=== PATIENT | female | born 1940 | race Caucasian/White ===

== ENCOUNTER 2017-03-15 15:28 | Observation (INO) | payer MEDICARE ==
[~2017-03-15] VITALS: Ht 167.6 cm; Wt 76.0 kg
[2017-03-15 15:45] VITALS: BP 224/95; PULSE 66; RESP 18; TEMP 97.6; O2SAT 97
--- NOTE | 2017-03-15 15:55 | PD ---
HPI Chief Complaint: Neuro Symptoms/ Deficits Time Seen by Provider: 15:35 Travel History International Travel<30 days: No Contact w/Intl Traveler<30days: No Traveled to known affect area: No History of Present Illness HPI 77-year-old female presents to the emergency department via EMS for evaluation of confusion that started this morning. According to the patient's , she was last seen normal last night before going to bed.. The patient denies any headaches. No visual changes. No fevers or chills. No chest pain. No neck pain. No back pain. No shortness of breath. No abdominal pain. No nausea, vomiting, diarrhea, constipation. She states she feels well and has no complaints. On questioning, she does not know what year it is sore who the president is. She also does not know that we are in the month of March. She will answer questions helmet something and then 5 minutes later not remember that she told me that. 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 She states she had it one time in the past with similar symptoms. She does not know her medical history what medications she is on. Moderate severity. PFSH Past Medical History ?: Not Social History Alcohol Use: No Tobacco Use: No Substance Use: No Allergies-Medications (Allergen,Severity, Reaction): Coded Allergies: No Known Allergies (Unverified , 03/15/17) Reported Meds & Prescriptions Reported Meds & Active Scripts Active Active Prescriptions or Reported Medications Unobtainable Review of Systems Except as stated in HPI: all other systems reviewed are Neg Physical Exam Narrative GENERAL: Well-nourished, well-developed female patient, afebrile. SKIN: Focused skin assessment warm/dry. HEAD: Normocephalic. Atraumatic. ENT: Mucosa pink and moist. No erythema or exudates. No uvular edema. No uvular , palatal, or tonsillar deviation. Airway patent. Nasal turbinates appear normal without nasal blood, purulent drainage or septal hematoma. Bilateral tympanic membranes are clear without erythema or perforation. EYES: No scleral icterus. No injection or drainage. PERRLA. EOM intact. NECK: Supple, trachea midline. No JVD or lymphadenopathy. CARDIOVASCULAR: Regular rate and rhythm without murmurs, gallops, or rubs. Bilateral radial and pedal pulses are 2+. RESPIRATORY: Breath sounds equal bilaterally. No accessory muscle use. Lungs sounds are clear to auscultation. GASTROINTESTINAL: Abdomen soft, non-tender, nondistended. MUSCULOSKELETAL: No cyanosis, or edema. BACK: Nontender without obvious deformity. No CVA tenderness. No midline spinal tenderness. NEUROLOGICAL: Awake and alert. Cranial nerves II through XII intact. Motor and sensory grossly within normal limits. Five out of 5 muscle strength in all muscle groups. Normal speech. Finger to nose is normal bilaterally. Heel-to- ewing is normal bilaterally. Data Data Last Documented VS Vital Signs Date Time Temp Pulse Resp B/P (MAP) Pulse Ox O2 Delivery O2 Flow Rate FiO2 03/15/17 16:38 78 18 168/74 (105) 98 Room Air 03/15/17 15:45 97.6 Orders Orders Electrocardiogram (03/15/17 15:46) Prothrombin Time / Inr (Pt) (03/15/17 15:46) Act Partial Throm Time (Ptt) (03/15/17 15:46) Complete Blood Count With Diff (03/15/17 15:46) Comprehensive Metabolic Panel (03/15/17 15:46) Creatine Kinase (Cpk) (03/15/17 15:46) Drug Screen, Random Urine (03/15/17 15:46) Troponin I (03/15/17 15:46) Urinalysis - C+S If Indicated (03/15/17 15:46) Ct Brain W/O Iv Contrast(Rout) (03/15/17 15:46) Chest, Single Ap (03/15/17 15:46) Ecg Monitoring (03/15/17 15:46) Iv Access Insert/Monitor (03/15/17 15:46) Oximetry (03/15/17 15:46) Hydralazine Inj (Apresoline Inj) (03/15/17 16:15) Hydralazine Inj (Apresoline Inj) (03/15/17 17:00) Hydralazine Inj (Apresoline Inj) (03/15/17 18:15) Labs Laboratory Tests Test 03/15/17 16:00 03/15/17 16:10 White Blood Count 8.3 TH/MM3 Red Blood Count 4.64 MIL/MM3 Hemoglobin 15.1 GM/DL Hematocrit 43.6 % Mean Corpuscular Volume 94.1 FL Mean Corpuscular Hemoglobin 32.5 PG Mean Corpuscular Hemoglobin Concent 34.6 % Red Cell Distribution Width 13.0 % Platelet Count 229 TH/MM3 Mean Platelet Volume 8.1 FL Neutrophils (%) (Auto) 73.6 % Lymphocytes (%) (Auto) 19.1 % Monocytes (%) (Auto) 5.6 % Eosinophils (%) (Auto) 1.3 % Basophils (%) (Auto) 0.4 % Neutrophils # (Auto) 6.1 TH/MM3 Lymphocytes # (Auto) 1.6 TH/MM3 Monocytes # (Auto) 0.5 TH/MM3 Eosinophils # (Auto) 0.1 TH/MM3 Basophils # (Auto) 0.0 TH/MM3 CBC Comment DIFF FINAL Differential Comment Prothrombin Time 9.8 SEC Prothromb Time International Ratio 1.0 RATIO Activated Partial Thromboplast Time 24.5 SEC Blood Urea Nitrogen 11 MG/DL Creatinine 0.68 MG/DL Random Glucose 113 MG/DL Total Protein 7.4 GM/DL Albumin 3.9 GM/DL Calcium Level 8.9 MG/DL Alkaline Phosphatase 73 U/L Aspartate Amino Transf (AST/SGOT) 23 U/L Alanine Aminotransferase (ALT/SGPT) 29 U/L Total Bilirubin 1.0 MG/DL Sodium Level 140 MEQ/L Potassium Level 3.8 MEQ/L Chloride Level 106 MEQ/L Carbon Dioxide Level 26.0 MEQ/L Anion Gap 8 MEQ/L Estimat Glomerular Filtration Rate 83 ML/MIN Total Creatine Kinase 76 U/L Troponin I LESS THAN 0.02 NG/ML Urine Color LIGHT-YELLOW Urine Turbidity CLEAR Urine pH 8.0 Urine Specific [place] 1.007 Urine Protein 30 mg/dL Urine Glucose (UA) NEG mg/dL Urine Ketones NEG mg/dL Urine Occult Blood NEG Urine Nitrite NEG Urine Bilirubin NEG Urine Urobilinogen LESS THAN 2.0 MG/DL Urine Leukocyte Esterase NEG Urine RBC LESS THAN 1 /hpf Microscopic Urinalysis Comment CATH-CULT NOT IND Urine Opiates Screen NEG Urine Barbiturates Screen NEG Urine Amphetamines Screen NEG Urine Benzodiazepines Screen NEG Urine Cocaine Screen NEG Urine Cannabinoids Screen NEG MDM Medical Decision Making Medical Screen Exam Complete: Yes Emergency Medical Condition: Yes Medical Record Reviewed: Yes Interpretation(s) chest x-ray - CONCLUSION: No acute cardiopulmonary abnormality is identified. CT brain - CONCLUSION: No acute intracranial abnormality is identified. Differential Diagnosis Transient global amnesia versus CVA versus TIA versus electrolyte abnormality versus dehydration versus intracranial mass versus intracranial hemorrhage Narrative Course 77-year-old female presents to the emergency department via EMS for confusion that started this morning sometime between 8 and 8:30 this morning. On exam, she does answer most questions appropriately. She is confused on the date, month, president. She will tell me something and then does not remember telling me it right after. EKG, CBC, CMP, CK, troponin, PTT, PT/INR, UA, urine drug screen are ordered and pending. Chest x-ray and CT of the brain are ordered and pending. EKG shows sinus rhythm, heart rate 62, no acute ST changes. CBC is unremarkable. CMP shows no acute abnormality. CK is 76. Troponin is less than 0.02. Coags shows no acute abnormalities. UA is negative. UDS is negative. Chest x-ray shows no acute cardiopulmonary abnormality is identified. . CT of the brain shows no acute intracranial abnormality. Dr. Ha accepted admission. Diagnosis Primary Impression: Acute confusion Admitting Information Admitting Physician Requests: Observation Scripts Unable to Obtain Active Prescriptions or Reported Meds Esthela Pena Mar 15, 2017 15:54
[2017-03-15 16:03] VITALS: RESP 18; O2SAT 98
[2017-03-15] MEDS ORDERED: hydrALAZINE HCL 20 MG/ML VIAL IV PUSH ONE ×3 (16:15→18:15)
--- NOTE | 2017-03-15 16:19 | RADRPT ---
EXAM DATE/TIME: 03/15/2017 15:56 [facility] COMPARISON: No previous studies available for comparison. INDICATIONS : Loss of memory MEDICAL HISTORY : None. SURGICAL HISTORY : None. ENCOUNTER: Initial ACUITY: 1 day PAIN SCORE: 0/10 LOCATION: Bilateral chest FINDINGS: Portable AP view of the chest demonstrates a normal-sized cardiac silhouette with calcification of th e aorta. No effusion, consolidation, or pneumothorax is visualized. The bones and soft tissues demons trate no acute abnormality. Clips overlie the right axilla. CONCLUSION: No acute cardiopulmonary abnormality is identified. Burt Chatterjee MD on March 15, 2017 at 16:14 Board Certified Radiologist. This report was verified electronically.
[2017-03-15 16:30] LABS: AUTOMATED NEUTROPHIL # 6.1 TH/MM3 (1.8-7.7); BASOPHIL % 0.4 % (0.0-2.0); EOSINOPHIL # 0.1 TH/MM3 (0-0.4); EOSINOPHIL % 1.3 % (0.0-4.0); HEMATOCRIT 43.6 % (35.0-46.0); HEMOGLOBIN 15.1 GM/DL (11.6-15.3); LYMPH % 19.1 % (9.0-44.0); LYMPHOCYTE # 1.6 TH/MM3 (1.0-4.8); MEAN CELL VOLUME 94.1 FL (80.0-100.0); MEAN CORPUSCULAR HEMOGLOBIN 32.5 PG (27.0-34.0); MEAN CORPUSCULAR HGB CONC 34.6 % (32.0-36.0); MEAN PLATELET VOLUME 8.1 FL (7.0-11.0); MONO % 5.6 % (0.0-8.0); MONOCYTE # 0.5 TH/MM3 (0-0.9); NEUT % 73.6 % (16.0-70.0); PLATELET COUNT 229 TH/MM3 (150-450); RED BLOOD COUNT 4.64 MIL/MM3 (4.00-5.30); WHITE BLOOD COUNT 8.3 TH/MM3 (4.0-11.0)
[2017-03-15 16:32] LABS: BILIRUBIN, URINE NEG (NEG); BLOOD, URINE NEG (NEG); GLUCOSE,URINE NEG (NEG); KETONE, URINE NEG (NEG); NITRITE,URINE NEG (NEG); URINE COLOR LIGHT-YELLOW (YELLW/STRAW); URINE LEUKOCYTE ESTERASE NEG (NEG)
[2017-03-15 16:38] VITALS: BP 168/74; PULSE 78; RESP 18; O2SAT 98
[2017-03-15 16:41] LABS: PROTHROMBIN TIME - PATIENT 9.8 SEC (9.8-11.6)
[2017-03-15 16:54] LABS: ALBUMIN 3.9 GM/DL (3.4-5.0); ALKALINE PHOSPHATASE 73 U/L (45-117); ALT (GPT) 29 U/L (10-53); AST (GOT) 23 U/L (15-37); BLOOD UREA NITROGEN 11 MG/DL (7-18); CALCIUM 8.9 MG/DL (8.5-10.1); CHLORIDE 106 MEQ/L (98-107); CREATININE 0.68 MG/DL (0.50-1.00); GLOMERULAR FILTRATION RATE 83 ML/MIN (>89); GLUCOSE,RANDOM 113 MG/DL (74-106); SODIUM (NA) 140 MEQ/L (136-145); TOTAL PROTEIN 7.4 GM/DL (6.4-8.2); TROPONIN I LESS THAN 0.02 NG/ML (0.02-0.05)
--- NOTE | 2017-03-15 17:45 | PD ---
Physical Exam Narrative I, Dr. Peralta, have reviewed the advance practice practitioner's documentation and am in agreement, met with the patient face to face, made the diagnosis, and the medical decision making was done by me. *My assessment and Findings: Transient global amnesia vs. dementia vs. electrolyte abnormality vs. ICH vs. CVA vs. conversion disorder 77yo F with history of transient global amnesia here because she had an acute change in mental status today. As per , he came home from golf and she was on the phone with her daughter. Pt does not remember being on the phone. She also didnt know where she was and was confused. Denies any headache, visual changes, chest pain, sob, n/v, abdominal pain, focal weakness or numbness , changes in speech. CT brain negative. Will admit for TIA work up. Data Data Last Documented VS Vital Signs Date Time Temp Pulse Resp B/P (MAP) Pulse Ox O2 Delivery O2 Flow Rate FiO2 03/15/17 16:38 78 18 168/74 (105) 98 Room Air 03/15/17 15:45 97.6 Orders Orders Electrocardiogram (03/15/17 15:46) Prothrombin Time / Inr (Pt) (03/15/17 15:46) Act Partial Throm Time (Ptt) (03/15/17 15:46) Complete Blood Count With Diff (03/15/17 15:46) Comprehensive Metabolic Panel (03/15/17 15:46) Creatine Kinase (Cpk) (03/15/17 15:46) Drug Screen, Random Urine (03/15/17 15:46) Troponin I (03/15/17 15:46) Urinalysis - C+S If Indicated (03/15/17 15:46) Ct Brain W/O Iv Contrast(Rout) (03/15/17 15:46) Chest, Single Ap (03/15/17 15:46) Ecg Monitoring (03/15/17 15:46) Iv Access Insert/Monitor (03/15/17 15:46) Oximetry (03/15/17 15:46) Hydralazine Inj (Apresoline Inj) (03/15/17 16:15) Hydralazine Inj (Apresoline Inj) (03/15/17 17:00) Hydralazine Inj (Apresoline Inj) (03/15/17 18:15) Admit Order (Ed Use Only) (03/15/17 18:10) Labs Laboratory Tests Test 03/15/17 16:00 03/15/17 16:10 White Blood Count 8.3 TH/MM3 Red Blood Count 4.64 MIL/MM3 Hemoglobin 15.1 GM/DL Hematocrit 43.6 % Mean Corpuscular Volume 94.1 FL Mean Corpuscular Hemoglobin 32.5 PG Mean Corpuscular Hemoglobin Concent 34.6 % Red Cell Distribution Width 13.0 % Platelet Count 229 TH/MM3 Mean Platelet Volume 8.1 FL Neutrophils (%) (Auto) 73.6 % Lymphocytes (%) (Auto) 19.1 % Monocytes (%) (Auto) 5.6 % Eosinophils (%) (Auto) 1.3 % Basophils (%) (Auto) 0.4 % Neutrophils # (Auto) 6.1 TH/MM3 Lymphocytes # (Auto) 1.6 TH/MM3 Monocytes # (Auto) 0.5 TH/MM3 Eosinophils # (Auto) 0.1 TH/MM3 Basophils # (Auto) 0.0 TH/MM3 CBC Comment DIFF FINAL Differential Comment Prothrombin Time 9.8 SEC Prothromb Time International Ratio 1.0 RATIO Activated Partial Thromboplast Time 24.5 SEC Blood Urea Nitrogen 11 MG/DL Creatinine 0.68 MG/DL Random Glucose 113 MG/DL Total Protein 7.4 GM/DL Albumin 3.9 GM/DL Calcium Level 8.9 MG/DL Alkaline Phosphatase 73 U/L Aspartate Amino Transf (AST/SGOT) 23 U/L Alanine Aminotransferase (ALT/SGPT) 29 U/L Total Bilirubin 1.0 MG/DL Sodium Level 140 MEQ/L Potassium Level 3.8 MEQ/L Chloride Level 106 MEQ/L Carbon Dioxide Level 26.0 MEQ/L Anion Gap 8 MEQ/L Estimat Glomerular Filtration Rate 83 ML/MIN Hemoglobin A1c 6.1 % Total Creatine Kinase 76 U/L Troponin I LESS THAN 0.02 NG/ML Urine Color LIGHT-YELLOW Urine Turbidity CLEAR Urine pH 8.0 Urine Specific [place] 1.007 Urine Protein 30 mg/dL Urine Glucose (UA) NEG mg/dL Urine Ketones NEG mg/dL Urine Occult Blood NEG Urine Nitrite NEG Urine Bilirubin NEG Urine Urobilinogen LESS THAN 2.0 MG/DL Urine Leukocyte Esterase NEG Urine RBC LESS THAN 1 /hpf Microscopic Urinalysis Comment CATH-CULT NOT IND Urine Opiates Screen NEG Urine Barbiturates Screen NEG Urine Amphetamines Screen NEG Urine Benzodiazepines Screen NEG Urine Cocaine Screen NEG Urine Cannabinoids Screen NEG MDM Supervised Visit with RONI: Yes Interpretation(s) EKG: NSR 62bpm. Normal axis. Q wave III. No ST segment elevation or depression. Diagnosis Primary Impression: Acute confusion Admitting Information Admitting Physician Requests: Observation Edda Peralta DO Mar 15, 2017 17:45
--- NOTE | 2017-03-15 17:57 | RADRPT ---
EXAM DATE/TIME: 03/15/2017 17:41 [facility] COMPARISON: No previous studies available for comparison. INDICATIONS : Altered mental status. RADIATION DOSE: 48.02 CTDIvol (mGy) MEDICAL HISTORY : None SURGICAL HISTORY : None. ENCOUNTER: Initial ACUITY: 1 day PAIN SCALE: 0/10 LOCATION: Bilateral head TECHNIQUE: Multiple contiguous axial images were obtained of the head. Using automated exposure control and adj ustment of the mA and/or kV according to patient size, radiation dose was kept as low as reasonably a chievable to obtain optimal diagnostic quality images. DICOM format image data is available electro nically for review and comparison. FINDINGS: CEREBRUM: There is mild cerebral atrophy. Ventricles are normal. No evidence of midline shift, mass lesion, he morrhage or acute infarction. No extra-axial fluid collections are seen. POSTERIOR FOSSA: The cerebellum and brainstem are intact. The 4th ventricle is midline. The cerebellopontine angle i s unremarkable. EXTRACRANIAL: Visualized sinuses are clear. SKULL: The calvaria is intact. No evidence of skull fracture. CONCLUSION: No acute intracranial abnormality is identified. Burt Chatterjee MD on March 15, 2017 at 17:53 Board Certified Radiologist. This report was verified electronically.
[2017-03-15] MEDS ORDERED: ACETAMINOPHEN 325 MG TAB PO PRN (18:15)
[2017-03-15] MEDS ORDERED: NALOXONE HCL 0.4 MG/ML AMP IV PUSH PRN (18:15)
[2017-03-15] MEDS ORDERED: BISACODYL 10 MG SUPP RECTAL PRN (18:15)
[2017-03-15] MEDS ORDERED: ONDANSETRON HCL 4 MG/2 ML VIAL IVP PRN (18:15)
[2017-03-15] MEDS ORDERED: SENNOSIDES 8.6 MG TAB PO PRN (18:15)
[2017-03-15] MEDS ORDERED: MAGNESIUM HYDROXIDE SUSP 30 ML CUP PO PRN (18:15)
[2017-03-15] MEDS ORDERED: SODIUM CHLORIDE 0.9% FLUSH 10 ML FLUSH IV FLUSH PRN (18:15)
[2017-03-15] MEDS ORDERED: LACTULOSE SYRUP 20 GM/30 ML CUP PO PRN (18:15)
[2017-03-15 19:18] VITALS: BP 184/82; PULSE 75; RESP 18; O2SAT 98
--- NOTE | 2017-03-15 19:19 | RADRPT ---
EXAM DATE/TIME: 03/15/2017 18:49 [facility] COMPARISON: CT BRAIN W/O CONTRAST, March 15, 2017, 17:41. INDICATIONS : CVA. Confusion for one day. MEDICAL HISTORY : Carcinoma, breast. SURGICAL HISTORY : Hysterectomy. ENCOUNTER: Initial ACUITY: 1 day PAIN SCORE: 8/10 LOCATION: Bilateral cranial TECHNIQUE: Multiplanar, multisequence MRI of the brain was performed without contrast. FINDINGS: CEREBRUM: The ventricles are normal for age. No evidence of midline shift, mass lesion, hemorrhage or acute in farction. Minimal periventricular and subcortical white matter small vessel ischemic changes are not ed bilaterally. No extraaxial fluid collections are seen. The pituitary gland and suprasellar cister n are normal in configuration. WHITE MATTER: No significant signal abnormalities are seen in the white matter. POSTERIOR FOSSA: The cerebellum and brainstem are intact. The 4th ventricle is midline. The cerebellopontine angle is unremarkable. The cerebellar tonsils are normal in position. DIFFUSION IMAGING: No focal areas of restricted diffusion are seen. No evidence of acute infarction. EXTRACRANIAL: The visualized portions of the orbits and paranasal sinuses are unremarkable. CONCLUSION: 1. Minimal periventricular and subcortical white matter small vessel ischemic changes bilaterally. 2. No acute infarct, acute hemorrhage, mass effect or extra-axial fluid collections. Walter Daniels MD on March 15, 2017 at 19:14 Board Certified Radiologist. This report was verified electronically.
[2017-03-15 19:36] VITALS: BP 175/77; PULSE 71; RESP 18; O2SAT 98
[2017-03-15] MEDS ORDERED: PADIMATE (CHAPSTICK) 4.5 GM TUBE TOPICAL PRN (20:15)
[2017-03-15 20:38] VITALS: BP 169/71; PULSE 72; RESP 17; TEMP 97.6; O2SAT 96
--- NOTE | 2017-03-15 21:08 | HHI.HP ---
[facility] Primary Care Physician Dr. Morgan Ann . Admission Diagnosis acute confusion Diagnoses: (1) Acute confusion Chief Complaint: Period of confusion, impaired memory Travel History International Travel<30 Days: No Contact w/Intl Traveler <30 Da: No Traveled to Known Affected Are: No History of Present Illness Written by Tess Lemus, acting as scribe for Dr. Hopson on 03/15/17 at 21:08. The patient was seen in the CDU. She reports the following: Similar episodes in 1998 and 2005 - she was told it was "transient global amnesia" The patient reports that she was on the phone with her daughter in [place] and she doesn't know what happened. Neighbors went to check on her at her home because the daughter was concerned and called them. She didn't remember talking with her daughter. Initially her was not at home but the patient's friend called him while he was golfing and told him to come home and he came home. The friend was concerned that something was wrong. She was on the phone with her daughter for 45 minutes after the patient' s came home. His daughter told him that he needed to call 911 because the patient was not acting right. She kept repeating herself and didn't remember what she was saying. She reports losing a "few hours" - she has a vague recollection of riding on the ambulance. In 1998, episode occurred while she was in the shower. She came out of the shower and acted strangely. She was attempting to cover herself with a tiny hand towel which was very unusual behavior for her. She was diagnosed with transient global amnesia. Ate Ritz crackers with peanut butter. Last was speaking normally at 10:15 a.m. In 2005, possibly: she was out driving and became confused about where she was going. She doesn't remember the exact details. She says her children will remember better. They are flying in from [facility]. Denies any seizures or CVA. Denies any changes to medications. Last one to two weeks: Denies fevers, headache, nausea, vomiting, black or red stool, hematuria, dysuria, frequency, chest pain, shortness of breath, or abdominal pain. Does not follow with a neurologist Review of Systems Except as stated in HPI: all other systems reviewed are Neg Past Family Social History Past Medical History Prediabetes High blood pressure at times Breast cancer 2007 - right breast s/p lumpectomy and 30 radiation treatments - no chemotherapy Glaucoma Thyroid nodule Denies CAD, CHF, irregular heart rhythms, COPD, asthma, liver problems, kidney problems, DVT, PE, CVA, seizures. . Past Surgical History Right breast lumpectomy 2007 x 2 Partial Hysterectomy Full Hysterectomy Cataracts . Reported Medications Does not recall all meds or doses [facility] [address] Allergies: Coded Allergies: No Known Allergies (Unverified , 03/15/17) Active Ordered Medications Current Medications Hydralazine HCl (Apresoline Inj) 10 mg ONCE ONCE IV PUSH Last administered on 03/15/17 16:21; Start 03/15/17 at 16:15; Stop 03/15/17 at 16:16; Status DC Hydralazine HCl (Apresoline Inj) 10 mg ONCE ONCE IV PUSH ; Start 03/15/17 at 17 :00; Stop 03/15/17 at 17:00; Status DC Hydralazine HCl (Apresoline Inj) 10 mg ONCE ONCE IV PUSH Last administered on 03/15/17 18:23; Start 03/15/17 at 18:15; Stop 03/15/17 at 18:16; Status DC Sodium Chloride (NS Flush) 2 ml UNSCH PRN IV FLUSH FLUSH AFTER USING IV ACCESS ; Start 03/15/17 at 18:15 Sodium Chloride (NS Flush) 2 ml BID IV FLUSH ; Start 03/15/17 at 21:00 Acetaminophen (Tylenol) 650 mg Q4H PRN PO TEMP > 100.4 Last administered on 19:38; Start 03/15/17 at 18:15 Ondansetron HCl (Zofran Inj) 4 mg Q6H PRN IVP NAUSEA OR VOMITING; Start at 18:15 Heparin Sodium (Porcine) (Heparin Inj) 5,000 units Q8H SQ ; Start 03/15/17 at 22 :00 Naloxone HCl (Narcan Inj) 0.4 mg UNSCH PRN IV PUSH SEE LABEL COMMENTS; Start 03/15/17 at 18:15 Senna/Docusate Sodium (Faith-Colace) 1 tab BID PO ; Start 03/15/17 at 21:00 Magnesium Hydroxide (Milk Of Magnesia Liq) 30 ml Q12H PRN PO Mild constipation ; Start 03/15/17 at 18:15 Sennosides (Senokot) 17.2 mg Q12H PRN PO Moderate constipation; Start 03/15/17 at 18:15 Bisacodyl (Dulcolax Supp) 10 mg DAILY PRN RECTAL SEVERE CONSITIPATION; Start 03/15/17 at 18:15 Lactulose (Lactulose Liq) 30 ml DAILY PRN PO SEVERE CONSITIPATION; Start at 18:15 Padimate O (Chapstick) 1 applic UNSCH PRN TOPICAL dry lips; Start 03/15/17 at 20:15 . Family History Breast and Ovarian CA . Social History Tobacco: denies Alcohol: a glass of wine on occasion, not daily Still driving . Physical Exam Vital Signs Vital Signs Date Time Temp Pulse Resp B/P (MAP) Pulse Ox O2 Delivery O2 Flow Rate FiO2 03/15/17 20:38 97.6 72 17 169/71 (103) 96 03/15/17 19:36 71 18 175/77 (109) 98 Room Air 03/15/17 19:18 75 18 184/82 (116) 98 Room Air 03/15/17 16:38 78 18 168/74 (105) 98 Room Air 03/15/17 16:03 18 98 Room Air 03/15/17 15:45 97.6 66 18 224/95 (138) 97 Room Air 03/15/17 15:45 90 18 97 Room Air Physical Exam GENERAL: This is a pleasant well-nourished, well-developed patient, in no apparent distress. SKIN: No rashes, ecchymoses or lesions. Cool and dry. HEAD: Atraumatic. Normocephalic. EYES: No scleral icterus. No injection or drainage. ENT: Nose without bleeding, purulent drainage. NECK: Trachea midline. No JVD or lymphadenopathy. CARDIOVASCULAR: Regular rate and rhythm without murmurs, gallops, or rubs. RESPIRATORY: Clear to auscultation. Breath sounds equal bilaterally. No wheezes , rales, or rhonchi. GASTROINTESTINAL: Abdomen soft, non-tender, nondistended. No guarding. MUSCULOSKELETAL: Extremities without clubbing, cyanosis, or edema. No calf tenderness. NEUROLOGICAL: Awake and alert. Motor and sensory grossly within normal limits. Normal speech. Patient has some memory impairment. . Laboratory Laboratory Tests Test 03/15/17 16:00 03/15/17 16:10 White Blood Count 8.3 Red Blood Count 4.64 Hemoglobin 15.1 Hematocrit 43.6 Mean Corpuscular Volume 94.1 Mean Corpuscular Hemoglobin 32.5 Mean Corpuscular Hemoglobin Concent 34.6 Red Cell Distribution Width 13.0 Platelet Count 229 Mean Platelet Volume 8.1 Neutrophils (%) (Auto) 73.6 Lymphocytes (%) (Auto) 19.1 Monocytes (%) (Auto) 5.6 Eosinophils (%) (Auto) 1.3 Basophils (%) (Auto) 0.4 Neutrophils # (Auto) 6.1 Lymphocytes # (Auto) 1.6 Monocytes # (Auto) 0.5 Eosinophils # (Auto) 0.1 Basophils # (Auto) 0.0 CBC Comment DIFF FINAL Differential Comment Prothrombin Time 9.8 Prothromb Time International Ratio 1.0 Activated Partial Thromboplast Time 24.5 Blood Urea Nitrogen 11 Creatinine 0.68 Random Glucose 113 Total Protein 7.4 Albumin 3.9 Calcium Level 8.9 Alkaline Phosphatase 73 Aspartate Amino Transf (AST/SGOT) 23 Alanine Aminotransferase (ALT/SGPT) 29 Total Bilirubin 1.0 Sodium Level 140 Potassium Level 3.8 Chloride Level 106 Carbon Dioxide Level 26.0 Anion Gap 8 Estimat Glomerular Filtration Rate 83 Total Creatine Kinase 76 Troponin I LESS THAN 0.02 Urine Color LIGHT-YELLOW Urine Turbidity CLEAR Urine pH 8.0 Urine Specific [place] 1.007 Urine Protein 30 Urine Glucose (UA) NEG Urine Ketones NEG Urine Occult Blood NEG Urine Nitrite NEG Urine Bilirubin NEG Urine Urobilinogen LESS THAN 2.0 Urine Leukocyte Esterase NEG Urine RBC LESS THAN 1 Microscopic Urinalysis Comment CATH-CULT NOT IND Urine Opiates Screen NEG Urine Barbiturates Screen NEG Urine Amphetamines Screen NEG Urine Benzodiazepines Screen NEG Urine Cocaine Screen NEG Urine Cannabinoids Screen NEG Result Diagram: 03/15/17 1600 03/15/17 1600 Imaging Last Impressions Head CT 03/15/17 1546 Signed Impressions: Service Date/Time: Wednesday, March 15, 2017 17:41 - CONCLUSION: No acute intracranial abnormality is identified. Burt Chatterjee MD Chest X-Ray 03/15/17 1546 Signed Impressions: Service Date/Time: Wednesday, March 15, 2017 15:56 - CONCLUSION: No acute cardiopulmonary abnormality is identified. Burt Chatterjee MD Brain MRI 03/15/17 0000 Signed Impressions: Service Date/Time: Wednesday, March 15, 2017 18:49 - CONCLUSION: 1. Minimal periventricular and subcortical white matter small vessel ischemic changes bilaterally. 2. No acute infarct, acute hemorrhage, mass effect or extra- axial fluid collections. Walter Daniels MD . Caprini VTE Risk Assessment Caprini VTE Risk Assessment: Mod/High Risk (score >= 2) Caprini Risk Assessment Model Point Value = 1 Point Value = 2 Point Value = 3 Point Value = 5 Age 41-60 Minor surgery BMI > 25 kg/m2 Swollen legs Varicose veins or History of unexplained or recurrent spontaneous Oral contraceptives or hormone replacement Sepsis (< 1 month) Serious lung disease, including pneumonia (< 1 month) Abnormal pulmonary function Acute myocardial infarction Congestive heart failure (< 1 month) History of inflammatory bowel disease Medical patient at bed rest Age 61-74 Arthroscopic surgery Major open surgery (> 45 min) Laparoscopic surgery (> 45 min) Malignancy Confined to bed (> 72 hours) Immobilizing plaster cast Central venous access Age >= 75 History of VTE Family history of VTE Factor V Leiden Prothrombin [id number] Lupus anticoagulant Anticardiolipin antibodies Elevated serum homocysteine Heparin-induced thrombocytopenia Other congenital or acquired thrombophilia Stroke (< 1 month) Elective arthroplasty Hip, pelvis, or leg fracture Acute spinal cord injury (< 1 month) Prophylaxis Regimen Total Risk Factor Score Risk Level Prophylaxis Regimen 0-1 Low Early ambulation 2 Moderate Order ONE of the following: *Sequential Compression Device (SCD) *Heparin 5000 units SQ BID 3-4 Higher Order ONE of the following medications: *Heparin 5000 units SQ TID *Enoxaparin/Lovenox 40 mg SQ daily (WT < 150 kg, CrCl > 30 mL/min) *Enoxaparin/Lovenox 30 mg SQ daily (WT < 150 kg, CrCl > 10-29 mL/min) *Enoxaparin/Lovenox 30 mg SQ BID (WT < 150 kg, CrCl > 30 mL/min) AND/OR *Sequential Compression Device (SCD) 5 or more Highest Order ONE of the following medications: *Heparin 5000 units SQ TID (Preferred with Epidurals) *Enoxaparin/Lovenox 40 mg SQ daily (WT < 150 kg, CrCl > 30 mL/min) *Enoxaparin/Lovenox 30 mg SQ daily (WT < 150 kg, CrCl > 10-29 mL/min) *Enoxaparin/Lovenox 30 mg SQ BID (WT < 150 kg, CrCl > 30 mL/min) AND *Sequential Compression Device (SCD) Assessment and Plan Problem List: (1) Encephalopathy ICD Code: G93.40 - Encephalopathy, unspecified Assessment and Plan Patient is a 77 y/o female with a history of breast cancer, transient global amnesia, and hyperlipidemia who presented to the ED with confusion and memory impairment: Encephalopathy - transient memory loss - likely secondary to TIA - Brain MRI: Minimal periventricular and subcortical white matter small ischemic vessel disease. No acute infarct, hemorrhage or fluid collections. - Head CT: no acute abnormality identified - consult neurology - appreciate assistance - Give ASA 324 mg chewable now and 325 mg EC daily - verbally ordered - Check lipid profile and HgA1C - Check carotid ultrasound to r/o carotid artery stenosis - monitor vital signs - heart healthy diet DVT prophylaxis - Lovenox 40 mg subq q24h Awaiting medication reconciliation to be completed for home medications to be resumed. . This note was transcribed by [email or web address] [Tess Lemus]. I, Dr. Win Hopson personally performed the history, physical exam, and medical decision making; and confirmed the accuracy of the information in the transcribed note. Authenticated by Dr. Win Hopson on 03/15/17 at 21:08. Discussed Condition With Patient, patient's , ER physician, and RN . Tess Lemus Mar 15, 2017 21:08 Win Hopson MD Apr 11, 2017 20:06
[2017-03-15] MEDS ORDERED: ASPIRIN 81 MG CHEW TAB CHEW ONE (21:30)
[2017-03-15] MEDS ORDERED: HEPARIN SODIUM - SQ 10,000 UNITS/ML VIAL SQ SCH (22:00)
[2017-03-15] MEDS ORDERED: PARO10TA3 PO (22:06)
[2017-03-15] MEDS ORDERED: SIMV20TA PO (22:06)
[2017-03-15] MEDS ORDERED: OMEP20TA93 PO (22:06)
[2017-03-15] MEDS ORDERED: TIMO0.5S30 EACH EYE (22:06)
[2017-03-15 22:27] LABS: HEMOGLOBIN A1C 6.1 % (4.3-6.0)
[2017-03-15] MEDS: DOCUSATE SODIUM 50 MG/SENNA 8.6 MG TAB PO SCH (22:41)
[2017-03-15] MEDS: ENOXAPARIN SODIUM 40 MG/0.4 ML SYRINGE SQ SCH (22:42)
[2017-03-15] MEDS: SODIUM CHLORIDE 0.9% FLUSH 10 ML FLUSH IV FLUSH SCH (22:42)
--- NOTE | 2017-03-15 23:16 | RADRPT ---
EXAM DATE/TIME: 03/15/2017 22:44 [place] COMPARISON: No previous studies available for comparison. INDICATIONS : Transient ischemic attack. Altered mental status. MEDICAL HISTORY : Breast cancer. IBS. Glaucoma. Transient global amnesia. SURGICAL HISTORY : None. ENCOUNTER: Initial ACUITY: 1 day PAIN SCORE: 0/10 LOCATION: Bilateral neck PEAK SYSTOLIC VELOCITIES (cm/sec): ICA/CCA RATIO: Right: 1.0 Left: 0.9 ICA: Right: 67 Left: 106 CCA: Right: 66 Left: 114 ECA: Right: 116 Left: 130 VERTEBRAL: Right: 75 antegrade Left: 62 antegrade Elevated flow velocities and ICA/CCA ratios have been found to correlate with increased degrees of vessel stenosis, calculated as percentage of diameter relative to a normal segment of distal ICA/CCA FINDINGS: RIGHT CAROTID: No significant stenosis is visualized. Mild calcified plaque is present in the bulbs and bifurcation. . The waveforms are within normal limits. LEFT CAROTID: No significant stenosis is visualized. Mild calcified plaque is present in the bulbs and bifurcation. The waveforms are within normal limits. VERTEBRAL ARTERIES: Antegrade flow is seen in both vertebral arteries. MISCELLANEOUS: None. CONCLUSION: Mild bilateral plaque and no evidence of a hemodynamically significant lesion. Aaron Echeverria MD on March 15, 2017 at 23:13 Board Certified Radiologist. This report was verified electronically.
[2017-03-15] MEDS: TIMOLOL MALEATE 0.5% OPHT SOLN 5 ML BTL EACH EYE SCH (23:53)
[2017-03-16] VITALS (10 sets, daily range): BP systolic 108–158; BP diastolic 54–71; PULSE 67–91; RESP 16–18; TEMP 97.8–98.1; O2SAT 95–97
--- NOTE | 2017-03-16 01:42 | HHI.PR ---
Addendum to Inpatient Note Addendum Reason: Additional Documentation Additional Information Patient was given a sandwich to eat and shortly after she ate it, she felt tired. She states that she turned off the TV and tried to sleep and started to feel chest pain. The patient's RN checked her bp and it was 72/38; bed was placed in a flat position and her BP improved to 110/60 with no other intervention and sbp was 115 by the time I came to the bedside. The patient was still feeling chest pain 2/10 with no radiation, no sob, palpitations, nausea/vomiting, or dizziness. I have placed orders for serial cardiac enzymes and EKG as well as an echocardiogram. Initial EKGs had suboptimal tracings that showed QT prolongation that resolved by the third EKG with better tracing. EKG with normal sinus rhythm, no ischemic changes. Discussed with Dr. Hopson. Will also check orthostatic blood pressure readings. Monitor closely. . Tess Lemus Mar 16, 2017 01:42
[2017-03-16 02:02] LABS: TROPONIN I 0.02 NG/ML (0.02-0.05)
[2017-03-16 07:20] LABS: ALBUMIN 3.6 GM/DL (3.4-5.0); ALT (GPT) 25 U/L (10-53); AST (GOT) 15 U/L (15-37); BICARBONATE 25.4 MEQ/L (21.0-32.0); BLOOD UREA NITROGEN 17 MG/DL (7-18); CALCIUM 8.8 MG/DL (8.5-10.1); CHLORIDE 103 MEQ/L (98-107); CHOLESTEROL 161 MG/DL (120-200); CREATININE 0.81 MG/DL (0.50-1.00); GLOMERULAR FILTRATION RATE 68 ML/MIN (>89); GLUCOSE,RANDOM 116 MG/DL (74-106); SODIUM (NA) 138 MEQ/L (136-145); TRIGLYCERIDES 103 MG/DL (42-150)
[2017-03-16 07:22] LABS: ALKALINE PHOSPHATASE 62 U/L (45-117); CHOLESTEROL/ HDL RATIO 2.53 RATIO; HDL CHOLESTEROL 63.6 MG/DL (40.0-60.0); LDL CHOLESTEROL 77 MG/DL (0-99); TOTAL BILIRUBIN ADULT 0.7 MG/DL (0.2-1.0); TOTAL PROTEIN 6.7 GM/DL (6.4-8.2)
[2017-03-16 07:28] LABS: TROPONIN I 0.02 NG/ML (0.02-0.05)
[2017-03-16] MEDS ORDERED: GLUCAGON 1 MG/ML VIAL OTHER PRN (08:45)
[2017-03-16] MEDS ORDERED: DEXTROSE 50% IN WATER 50 ML VIAL(D50) IV PUSH PRN (08:45)
[2017-03-16] MEDS: PARoxetine HCL 20 MG TAB PO SCH (08:55)
[2017-03-16] MEDS: PANTOPRAZOLE SOD 20 MG DELAYED RELEASE TAB PO SCH (08:56)
[2017-03-16] MEDS: PRAVASTATIN SOD 40 MG TAB PO SCH (08:56)
[2017-03-16] MEDS: DOCUSATE SODIUM 50 MG/SENNA 8.6 MG TAB PO SCH ×2 (08:56→21:22)
[2017-03-16] MEDS: SODIUM CHLORIDE 0.9% FLUSH 10 ML FLUSH IV FLUSH SCH ×2 (08:57→21:22)
[2017-03-16] MEDS: TIMOLOL MALEATE 0.5% OPHT SOLN 5 ML BTL EACH EYE SCH ×2 (08:58→21:21)
[2017-03-16] MEDS ORDERED: PNEUMOCOCCAL POLYVALENT INJ 25 MCG/0.5 ML SYR IM ONE (09:00)
[2017-03-16] MEDS ORDERED: ASPIRIN EC 325 MG TABEC PO SCH (09:00)
[2017-03-16] MEDS ORDERED: INFLUENZA VIRUS VACCINE (QUADRIVALENT) 0.5 ML SYR IM ONE (09:00)
[2017-03-16] MEDS: INSULIN ASPART SUPPLEMENTAL SCALE SQ SCH ×3 (12:00→21:00)
--- NOTE | 2017-03-16 13:08 | ECHRPT ---
Indication: CONCLUSIONS The left ventricular systolic function is normal with an estimated ejection fraction in the range of 55-60%. Doppler parameters are consistent with impaired left ventricular relaxtion (grade 1 diastolic dysfun ction). Mild mitral valve regurgitation. Mild aortic valve regurgitation. There is mild tricuspid valve regurgitation. BP: 169 / 71 HR: Rhythm: MEASUREMENTS (Male / Female) Normal Values Technical Quality:Good 2D ECHO LV Diastolic Diameter PLAX 3.9 cm 4.2 - 5.9 / 3.9 - 5.3 cm LV Systolic Diameter PLAX 2.9 cm IVS Diastolic Thickness 1.5 cm 0.6 - 1.0 / 0.6 - 0.9 cm LVPW Diastolic Thickness 1.0 cm 0.6 - 1.0 / 0.6 - 0.9 cm LV Relative Wall Thickness 0.6 RV Internal Dim ED PLAX 3.0 cm M-MODE Aortic Root Diameter MM 3.4 cm LA Systolic Diameter MM 2.7 cm LA Ao Ratio MM 0.8 AV Cusp Separation MM 2.2 cm DOPPLER AI Peak Velocity 412.0 cm/s AI Peak Gradient 67.9 mmHg AI Pressure Half Time 454.0 ms MV Area PHT 2.8 cm Mitral E Point Velocity 67.1 cm/s Mitral A Point Velocity 104.0 cm/s Mitral E to A Ratio 0.6 LV E' Lateral Velocity 5.9 cm/s Mitral E to LV E' Lateral Ratio 11.5 LV E' Septal Velocity 5.2 cm/s Mitral E to LV E' Septal Ratio 13.0 TR Peak Velocity 276.0 cm/s TR Peak Gradient 30.5 mmHg Right Atrial Pressure 10.0 mmHg Pulmonary Artery Systolic Pressu 40.5 mmHg Right Ventricular Systolic Press 40.5 mmHg FINDINGS LEFT VENTRICLE The left ventricular systolic function is normal with an estimated ejection fraction in the range of 55-60%. Normal left ventricular size. Doppler parameters are consistent with impaired left ventricular relaxtion (grade 1 diastolic dysfun ction). RIGHT VENTRICLE Normal right ventricular size and systolic function. LEFT ATRIUM The left atrial size is [id number] dilated. RIGHT ATRIUM The right atrial size is normal. ATRIAL SEPTUM Normal atrial septal thickness. AORTA The aortic root and proximal ascending aorta are normal in size on limited imaging. MITRAL VALVE Structurally normal mitral valve. Moderate mitral annular calcification. No mitral valve stenosis. Mild mitral valve regurgitation. AORTIC VALVE Trileaflet aortic valve. Mild aortic valve regurgitation. No aortic valve stenosis. TRICUSPID VALVE There is mild tricuspid valve regurgitation. The estimated pulmonary arterial pressure is 40.5 mmHg. Structurally normal tricuspid valve. PULMONARY VALVE No pulmonary valve regurgitation or stenosis. VESSELS The inferior vena cava is normal in size. PERICARDIUM No pericardial effusion. Tate Kay DO (Electronically Signed) Final Date:16 March 2017 13:08
[2017-03-16 14:14] LABS: MAGNESIUM 2.1 MG/DL (1.5-2.5); PHOSPHORUS 3.6 MG/DL (2.5-4.9)
[2017-03-16 14:22] LABS: TROPONIN I 0.02 NG/ML (0.02-0.05)
--- NOTE | 2017-03-16 14:35 | EKG ---
Date Performed: 03/15/2017 Time Performed: 15:47:48 PTAGE: 77 years EKG: Sinus rhythm NONSPECIFIC T-WAVE ABNORMALITY BORDERLINE ECG NO PREVIOUS TRACING DOCTOR: Kaylynn Ca Interpretating Date/Time 03/16/2017 14:29:32
--- NOTE | 2017-03-16 16:30 | MB ---
cc: ASTER HAJI M.D. DATE OF CONSULTATION: 03/16/2017 REASON FOR CONSULTATION: She is a 77-year-old female seen in neurological consultation in regards to an acute confusional state. The patient was talking on the phone with her daughter yesterday when the daughter of observed some apparent confusion and she called the neighbors that came in to check on the patient, as the was not at home. It appears that the patient was confused with no recall of several hours of events yesterday and she was brought to the hospital and today she has been just fine and appears to be back to baseline. She did have some apparent chest pain last evening which is being evaluated by the medical team. Interestingly, she had a couple of episodes of transient global amnesia in the past diagnosed in [place] by the neurologist, this was reportedly in 1998 and also in 2005. MEDICATIONS: She takes no blood thinners. She describes a statin, timolol ophthalmic drops, no blood pressure medication. EXAMINATION: The neurologic exam was essentially normal. There is slightly lower left upper and <<2:30>> and the patient has had previous doses with bilateral <<2:35>> elevations surgically. She has symmetrical reflexes 01-02 plus throughout, ocular movements and visual dubose full. Speech and language were normal. Good strength in all four limbs on the bedside exam. Plantar responses were flexor. LABORATORY FINDINGS: MRI of brain and carotid ultrasound studies unremarkable. Ancillary data seen. CBC is normal. Chemistries essentially benign with an LDL of 77. urine toxicology negative. ASSESSMENT Another episode of transient global amnesia. Discussed with multiple family members extensively. I suggest that she takes a baby aspirin daily. Otherwise general medical care. She is noted to have some significantly elevated blood pressure yesterday and chest pain and the family is waiting for a cardiology evaluation. I could follow her in the office as outpatient when we will also consider doing an MRA head and EEG studies. Thank you for asking us to assist in her care. MD TIFFANIE Parks/laura /2:43 PM /4:13 PM
--- NOTE | 2017-03-16 16:53 | HHI.PR ---
Subjective Remarks The patient was seen in the CDU. She reports the following: Similar episodes in 1998 and 2005 - she was told it was "transient global amnesia" The patient reports that she was on the phone with her daughter in [place] and she doesn't know what happened. Neighbors went to check on her at her home because the daughter was concerned and called them. She didn't remember talking with her daughter. Initially her was not at home but the patient's friend called him while he was golfing and told him to come home and he came home. The friend was concerned that something was wrong. She was on the phone with her daughter for 45 minutes after the patient' s came home. His daughter told him that he needed to call 911 because the patient was not acting right. She kept repeating herself and didn't remember what she was saying. She reports losing a "few hours" - she has a vague recollection of riding on the ambulance. In 1998, episode occurred while she was in the shower. She came out of the shower and acted strangely. She was attempting to cover herself with a tiny hand towel which was very unusual behavior for her. She was diagnosed with transient global amnesia. Ate Ritz crackers with peanut butter. Last was speaking normally at 10:15 a.m. In 2005, possibly: she was out driving and became confused about where she was going. She doesn't remember the exact details. She says her children will remember better. They are flying in from [facility]. Denies any seizures or CVA. Denies any changes to medications. Last one to two weeks: Denies fevers, headache, nausea, vomiting, black or red stool, hematuria, dysuria, frequency, chest pain, shortness of breath, or abdominal pain. Does not follow with a neurologist 12-5 Follow-up on patient with transient memory loss, chest pain. Patient seen and examined. and adult children are at the bedside. Patient denies any recurrence of chest heaviness. She denies any shortness of breath. Patient denies any acute medical complaints. She denies any headache, vision changes or dizziness. She does report occasional lightheadedness upon standing. Patient and family requested to be seen by development associate. No further episodes of confusion. CONSULT CARDIOLOGY AWAIT THEIR INPUT HAS BEEN CLEARED BY NEUROLOGY DR MADRIGAL AND CAN FOLLOW UP IN HIS OFFICE PCP IS JAIR Objective Vitals Vital Signs Date Time Temp Pulse Resp B/P (MAP) Pulse Ox O2 Delivery O2 Flow Rate FiO2 03/16/17 16:03 98.0 75 16 153/71 (98) 97 03/16/17 11:44 97.8 73 16 108/54 (72) 95 118/62 (80) 109/60 (76) 03/16/17 08:01 97.9 68 16 135/63 (87) 97 03/16/17 04:38 78 03/15/17 20:38 97.6 72 17 169/71 (103) 96 03/15/17 19:36 71 18 175/77 (109) 98 Room Air 03/15/17 19:18 75 18 184/82 (116) 98 Room Air I/O 03/15/17 03/15/17 03/15/17 03/16/17 03/16/17 03/16/17 07:00 15:00 23:00 07:00 15:00 23:00 Intake Total 600 ml Balance 600 ml Intake Oral 600 ml # Voids 2 Result Diagram: 03/15/17 1600 03/16/17 0600 Other Results Laboratory Tests Test 03/15/17 16:00 03/15/17 16:10 03/16/17 01:12 03/16/17 06:00 White Blood Count 8.3 TH/MM3 Red Blood Count 4.64 MIL/MM3 Hemoglobin 15.1 GM/DL Hematocrit 43.6 % Mean Corpuscular Volume 94.1 FL Mean Corpuscular Hemoglobin 32.5 PG Mean Corpuscular Hemoglobin Concent 34.6 % Red Cell Distribution Width 13.0 % Platelet Count 229 TH/MM3 Mean Platelet Volume 8.1 FL Neutrophils (%) (Auto) 73.6 % Lymphocytes (%) (Auto) 19.1 % Monocytes (%) (Auto) 5.6 % Eosinophils (%) (Auto) 1.3 % Basophils (%) (Auto) 0.4 % Neutrophils # (Auto) 6.1 TH/MM3 Lymphocytes # (Auto) 1.6 TH/MM3 Monocytes # (Auto) 0.5 TH/MM3 Eosinophils # (Auto) 0.1 TH/MM3 Basophils # (Auto) 0.0 TH/MM3 CBC Comment DIFF FINAL Differential Comment Prothrombin Time 9.8 SEC Prothromb Time International Ratio 1.0 RATIO Activated Partial Thromboplast Time 24.5 SEC Blood Urea Nitrogen 11 MG/DL 17 MG/DL Creatinine 0.68 MG/DL 0.81 MG/DL Random Glucose 113 MG/DL 116 MG/DL Total Protein 7.4 GM/DL 6.7 GM/DL Albumin 3.9 GM/DL 3.6 GM/DL Calcium Level 8.9 MG/DL 8.8 MG/DL Alkaline Phosphatase 73 U/L 62 U/L Aspartate Amino Transf (AST/SGOT) 23 U/L 15 U/L Alanine Aminotransferase (ALT/SGPT) 29 U/L 25 U/L Total Bilirubin 1.0 MG/DL 0.7 MG/DL Sodium Level 140 MEQ/L 138 MEQ/L Potassium Level 3.8 MEQ/L 3.6 MEQ/L Chloride Level 106 MEQ/L 103 MEQ/L Carbon Dioxide Level 26.0 MEQ/L 25.4 MEQ/L Anion Gap 8 MEQ/L 10 MEQ/L Estimat Glomerular Filtration Rate 83 ML/MIN 68 ML/MIN Hemoglobin A1c 6.1 % Total Creatine Kinase 76 U/L 58 U/L 52 U/L Troponin I LESS THAN 0.02 NG/ML 0.02 NG/ML 0.02 NG/ML Urine Color LIGHT-YELLOW Urine Turbidity CLEAR Urine pH 8.0 Urine Specific [place] 1.007 Urine Protein 30 mg/dL Urine Glucose (UA) NEG mg/dL Urine Ketones NEG mg/dL Urine Occult Blood NEG Urine Nitrite NEG Urine Bilirubin NEG Urine Urobilinogen LESS THAN 2.0 MG/DL Urine Leukocyte Esterase NEG Urine RBC LESS THAN 1 /hpf Microscopic Urinalysis Comment CATH-CULT NOT IND Urine Opiates Screen NEG Urine Barbiturates Screen NEG Urine Amphetamines Screen NEG Urine Benzodiazepines Screen NEG Urine Cocaine Screen NEG Urine Cannabinoids Screen NEG Triglycerides Level 103 MG/DL Cholesterol Level 161 MG/DL LDL Cholesterol 77 MG/DL HDL Cholesterol 63.6 MG/DL Cholesterol/HDL Ratio 2.53 RATIO Test 03/16/17 13:37 Phosphorus Level 3.6 MG/DL Magnesium Level 2.1 MG/DL Total Creatine Kinase 57 U/L Troponin I 0.02 NG/ML Thyroid Stimulating Hormone 3rd Gen 3.040 uIU/ML Imaging Last Impressions Head CT 03/15/17 3246 Signed Impressions: Service Date/Time: Wednesday, March 15, 2017 17:41 - CONCLUSION: No acute intracranial abnormality is identified. Burt Chatterjee MD Chest X-Ray 03/15/17 1546 Signed Impressions: Service Date/Time: Wednesday, March 15, 2017 15:56 - CONCLUSION: No acute cardiopulmonary abnormality is identified. Burt Chatterjee MD Carotid Artery Ultrasound 03/15/17 0000 Signed Impressions: Service Date/Time: Wednesday, March 15, 2017 22:44 - CONCLUSION: Mild bilateral plaque and no evidence of a hemodynamically significant lesion. Aaron Echeverria MD Brain MRI 03/15/17 0000 Signed Impressions: Service Date/Time: Wednesday, March 15, 2017 18:49 - CONCLUSION: 1. Minimal periventricular and subcortical white matter small vessel ischemic changes bilaterally. 2. No acute infarct, acute hemorrhage, mass effect or extra- axial fluid collections. Walter Daniels MD Objective Remarks GENERAL: This is a pleasant well-nourished, well-developed patient, in no apparent distress. Awake and alert. Talkative. Family at the bedside. Somewhat anxious SKIN: Warm and dry. HEAD: Atraumatic. Normocephalic. EYES: EOMI. No scleral icterus. No injection or drainage. Extraocular muscles intact ENT: Nose without bleeding, purulent drainage. MMM. Tongue is midline NECK: Trachea midline. Supple CARDIOVASCULAR: Regular rate and rhythm without murmurs, gallops, or rubs. RESPIRATORY: Clear to auscultation. Breath sounds equal bilaterally. No wheezes , rales, or rhonchi. S1-S2 no S3 or S4 GASTROINTESTINAL: Abdomen soft, non-tender, nondistended. No guarding. MUSCULOSKELETAL: Extremities without clubbing, cyanosis, or edema. No calf tenderness. Good pedal pulses BIlateral lower extremities NEUROLOGICAL: Awake and alert. Able to move extremities spontaneously. Motor and sensory grossly within normal limits. Normal speech. Somewhat anxious Insight and judgment appears good Mood and behaviors appropriate somewhat anxious Medications and IVs Current Medications Medications (Trade) Dose Ordered Sig/Christopher Route Start Time Stop Time Status Last Admin (NS Flush) 2 ml UNSCH PRN IV FLUSH 03/15/17 18:15 (NS Flush) 2 ml BID IV FLUSH 03/15/17 21:00 03/16/17 08:57 (Tylenol) 650 mg Q4H PRN PO 03/15/17 18:15 03/15/17 19:38 (Zofran Inj) 4 mg Q6H PRN IVP 03/15/17 18:15 (Narcan Inj) 0.4 mg UNSCH PRN IV PUSH 03/15/17 18:15 (Faith-Colace) 1 tab BID PO 03/15/17 21:00 03/16/17 08:56 (Milk Of Magnesia Liq) 30 ml Q12H PRN PO 03/15/17 18:15 (Senokot) 17.2 mg Q12H PRN PO 03/15/17 18:15 (Dulcolax Supp) 10 mg DAILY PRN RECTAL 03/15/17 18:15 (Lactulose Liq) 30 ml DAILY PRN PO 03/15/17 18:15 (Chapstick) 1 applic UNSCH PRN TOPICAL 03/15/17 20:15 03/15/17 23:53 (Lovenox Inj) 40 mg Q24H SQ 03/15/17 22:00 03/15/17 22:42 (Ecotrin Ec) 325 mg DAILY PO 03/16/17 09:00 03/16/17 08:56 (Timoptic 0.5% Opth Soln) 1 drop BID EACH EYE 03/15/17 22:15 03/16/17 08:58 (Protonix) 20 mg DAILY PO 03/16/17 09:00 03/16/17 08:56 (Paxil) 10 mg DAILY PO 03/16/17 09:00 03/16/17 08:55 (Pravachol) 40 mg DAILY PO 03/16/17 09:00 03/16/17 08:56 (D50w (Vial) Inj) 50 ml UNSCH PRN IV PUSH 03/16/17 08:45 (Glucagon Inj) 1 mg UNSCH PRN OTHER 03/16/17 08:45 (NovoLOG SUPPLEMENTAL SCALE) 1 ACHS SLIDING SCALE SQ 03/16/17 12:00 03/16/17 12:00 A/P Problem List: (1) Encephalopathy ICD Code: G93.40 - Encephalopathy, unspecified Assessment and Plan Patient is a 77 y/o female with a history of breast cancer, transient global amnesia, and hyperlipidemia who presented to the ED with confusion and memory impairment: Encephalopathy - transient memory loss Possible TIA - Brain MRI: Minimal periventricular and subcortical white matter small ischemic vessel disease. No acute infarct, hemorrhage or fluid collections. - Head CT: no acute abnormality identified - Echo showing ejection fraction in the range of 55-60%. Doppler parameters are consistent with impaired left ventricular relaxation (grade 1 diastolic dysfunction). - UDS negative - consult neurology - appreciate assistance. Recommend baby aspirin daily and follow up as outpatient. - ASA 81mg daily - Lipid profile with triglyceride 103, total cholesterol 161, LDL 77, HDL 63.6 - HgA1C 6.1 - TSH WNL - Carotid ultrasound showing minimal plaque - heart healthy diet Lightheadedness with standing - Orthostatics negative - Discussed with patient good oral intake and proper hydration. Also counseled on slow transitions. Chest pain - Patient developed chest heaviness last night. No recurrence today. - Troponins negative 3. EKG showed no ischemic changes, reviewed by me. - Patient family requesting cardiology evaluation. Consulted cardiology, appreciate recommendations. DVT prophylaxis - Lovenox 40 mg subq q24h Discussed with patient, , adult children, Dr. Ryan and Dr. Madrigal Discharge Planning Pending cardiology clearance Attending Statement The exam, history, and the medical decision-making described in the above note were completed with the assistance of the mid-level provider. I reviewed and agree with the findings presented. I attest that I had a [id number] encounter with the patient on the same day, and personally performed and documented my assessment and findings in the medical record. Yesika Desai Mar 16, 2017 16:53 Morgan Ryan DO Mar 16, 2017 16:57
--- NOTE | 2017-03-16 17:20 | EKG ---
Date Performed: 03/16/2017 Time Performed: 01:18:35 PTAGE: 77 years EKG: Sinus rhythm Minimal lateral T wave changes. When compard to previous tracing, there has been no significant Seri al change. ABNORMAL ECG PREVIOUS TRACING : 15.47 DOCTOR: Kaylynn Ca Interpretating Date/Time 03/16/2017 17:19:31
[2017-03-16] MEDS: ENOXAPARIN SODIUM 40 MG/0.4 ML SYRINGE SQ SCH (21:22)
--- NOTE | 2017-03-16 22:33 | EKG ---
Date Performed: 03/16/2017 Time Performed: 07:57:54 PTAGE: 77 years EKG: Sinus rhythm NONSPECIFIC T-WAVE ABNORMALITY BORDERLINE ECG PREVIOUS TRACING : 03/16/2017 01.18 Compared to prior tracing no significant change DOCTOR: Ki Resendiz Interpretating Date/Time 03/16/2017 22:31:46
[2017-03-17] VITALS (7 sets, daily range): BP systolic 133–156; BP diastolic 61–70; PULSE 60–72; RESP 18–24; TEMP 97.8–98.6; O2SAT 96–98
--- NOTE | 2017-03-17 00:08 | MB ---
cc: TATE HOBBS DO DATE OF CONSULTATION: 03/16/2017 REASON FOR CONSULTATION: Chest pain. HISTORY OF PRESENT ILLNESS Maryanne Torres is a pleasant 77-year-old female who originally presented to [facility] emergency room on March 15, 2017 due to acute confusion. Apparently the patient was on the phone with her daughter in [place] and states she did not know what was happening. Then her neighbors went to check on her because the daughter called and was concerned. She does not remember talking with her daughter. Her was out playing golf at the time and was called, and so he came home. At that time she was not acting right and 9--1 was called. She kept repeating herself and did not remember what she was saying. She somewhat remembers riding in the ambulance but that is the first thing that she remembers. Apparently she has had two other episodes of this similar in 1998 and 2005 which were labeled transient global amnesia. While in the clinical decision unit last night, the patient had an episode where she is not quite sure what exactly happened. She remembers eating a ham and cheese sandwich as she had not eaten all day and then was laying back. She started feeling nauseous and had pain somewhere in the epigastric region which she states was "chest pain." She called for the nurse and on the nurse's arrival blood pressure was done and it was 70/40. The patient was laid flat and her blood pressure improved immediately to 110/60. EKGs were ordered which showed normal sinus rhythm with nonspecific ST-T wave changes which is similar to her EKG on presentation. Troponins were ordered and these were negative x3. In seeing her later today, she is currently hemodynamically stable without symptoms. She is overall a poor historian as she does not remember the events well and exactly what happened. PAST MEDICAL HISTORY 1. Pre diabetes 2. Hypertension 3. Breast cancer 4. Glaucoma 5. Thyroid nodule. PAST SURGICAL HISTORY 1. Right breast lumpectomy x2 (2007) 2. Partial hysterectomy and then a full hysterectomy 3. Cataract surgery. ALLERGIES NO KNOWN DRUG ALLERGIES. MEDICATIONS 1. Zocor 20 mg daily 2. Paroxetine 10 mg daily 3. Timolol drops each eye twice a day 4. Omeprazole 20 mg daily. FAMILY HISTORY Denies premature coronary artery disease or sudden cardiac within the family. SOCIAL HISTORY Denies tobacco abuse. Occasionally has a glass of wine. REVIEW OF SYSTEMS 14-systems were reviewed including osteopathic pertinent positives and negatives above otherwise negative. PHYSICAL EXAMINATION Vital signs: Temperature 98.0, heart rate 75, blood pressure 153/71, respirations 16, pulse ox 97% on room air. In general the patient appears well. No acute distress, alert awake and oriented. Extraocular muscles intact. Mucous membranes moist. Neck: Supple. No JVD at 45 degrees. No carotid bruits heard bilaterally. Carotid upstroke is brisk in nature. Heart: Heart is regular rate and rhythm. Positive first and second heart sounds with a 1/6 holosystolic murmur noted at the apex. Lungs: Lungs are clear to auscultation bilaterally. No wheezes, rales or rhonchi. Abdomen: Soft, nontender, nondistended. No organomegaly noted. Extremities: Show no clubbing, cyanosis or edema. Femoral and distal pulses intact bilaterally. Neurologically: No focal deficits. Skin: Warm, dry and intact. Osteopathically, no kyphoscoliosis, lordosis or paraspinal tender points. LABORATORY WORK: Hemoglobin 15.1, hematocrit 43.6, platelets 229. Potassium 3.6, BUN 17, creatinine 0.81, troponin negative x3. Electrocardiogram (March 16, 2017 at 07:57) sinus rhythm, nonspecific ST-T wave changes. IMPRESSION 1. Acute confusion for which the patient has had multiple events. 2. Atypical chest pain. 3. Accelerated hypertension on arrival with a blood pressure of 224/95. 4. Ejection fraction of 55-60%, grade 1 diastolic dysfunction, mild mitral, aortic and tricuspid regurgitation by echocardiogram (March 16, 2017). RECOMMENDATIONS 1. Ms. Torres had acute confusion from an unknown cause and will continue with workup per neurology. 2. As per the event last night with hypotension and possible chest p ain, it is difficult to ascertain what really happened as the patient is a poor historian and she does not remember the event well. She does point to an epigastric region and states that she got nauseous which could have led to a vasovagal reaction and drop in her blood pressure. The other possibility is if she had true chest pain with the hypotensive event. Because of this we will plan a pharmacologic nuclear stress test in the morning. 3. Case was discussed with her son, Luis, over the phone of my overall concerns with her episode and the difficulty in ascertaining the history. He is concerned for possible TIAs and as she has had multiple events, I did discuss with him consideration of long-term rhythm analysis outpatient with either an event monitor or loop recorder to determine if she does have any arrhythmias which could possibly lead towards this. 4. She did present with accelerated hypertension which could lead to possible neurological symptoms. While here, here blood pressure has been relatively controlled and we will need to continue to follow this outpatient to see what the trend of her blood pressure is and if elevated, need to start her on antihypertensives. 5. Further recommendations will be made based on the hospital course. Thank you for allowing me to see Maryanne Torres. If there are any questions, please do not hesitate to call. Tate Hobbs DO VGP/AKHIL /10:38 PM /11:45 PM
[2017-03-17] MEDS: INSULIN ASPART SUPPLEMENTAL SCALE SQ SCH ×2 (08:00→12:00)
--- NOTE | 2017-03-17 08:30 | HHI.PR ---
Subjective Remarks Follow-up on patient with transient memory loss, chest pain. Patient seen and examined. Has been at the bedside. Patient states she slept extremely well last night. She denies any recurrence of chest pain. She denies any shortness of breath. Denies any fever or chills. Denies any further episodes of memory loss. Denies any weakness, headache, numbness/tingling, dizziness or vision changes. She denies any nausea, vomiting or abdominal pain. States she is urinating without any difficulties. Reports good bowel movement yesterday. Objective Vitals Vital Signs Date Time Temp Pulse Resp B/P (MAP) Pulse Ox O2 Delivery O2 Flow Rate FiO2 03/17/17 08:09 98.6 60 24 141/61 (87) 98 03/17/17 05:09 62 03/17/17 04:22 97.8 65 18 133/64 (87) 96 03/16/17 23:58 73 03/16/17 23:46 98.1 75 18 154/67 (96) 95 03/16/17 21:07 97.9 71 16 158/71 (100) 95 03/16/17 16:05 73 03/16/17 16:03 98.0 75 16 153/71 (98) 97 03/16/17 12:10 67 03/16/17 11:44 97.8 73 16 108/54 (72) 95 118/62 (80) 109/60 (76) I/O 03/16/17 03/16/17 03/16/17 03/17/17 03/17/17 03/17/17 07:00 15:00 23:00 07:00 15:00 23:00 Intake Total 600 ml 150 ml Balance 600 ml 150 ml Intake Oral 600 ml 150 ml # Voids 2 2 1 # Bowel Movements 1 Result Diagram: 03/15/17 1600 03/16/17 0600 Imaging Last Impressions Head CT 03/15/17 1546 Signed Impressions: Service Date/Time: Wednesday, March 15, 2017 17:41 - CONCLUSION: No acute intracranial abnormality is identified. Burt Chatterjee MD Chest X-Ray 03/15/17 1546 Signed Impressions: Service Date/Time: Wednesday, March 15, 2017 15:56 - CONCLUSION: No acute cardiopulmonary abnormality is identified. Burt Chatterjee MD Carotid Artery Ultrasound 03/15/17 0000 Signed Impressions: Service Date/Time: Wednesday, March 15, 2017 22:44 - CONCLUSION: Mild bilateral plaque and no evidence of a hemodynamically significant lesion. Aaron Echeverria MD Brain MRI 03/15/17 0000 Signed Impressions: Service Date/Time: Wednesday, March 15, 2017 18:49 - CONCLUSION: 1. Minimal periventricular and subcortical white matter small vessel ischemic changes bilaterally. 2. No acute infarct, acute hemorrhage, mass effect or extra- axial fluid collections. Walter Daniels MD Objective Remarks GENERAL: This is a pleasant well-nourished, well-developed patient, in no apparent distress. Awake and alert lying in hospital bed. at the bedside. SKIN: Warm and dry. HEAD: Atraumatic. Normocephalic. EYES: EOMI. No scleral icterus. No injection or drainage. ENT: Nose without bleeding, purulent drainage. MMM. NECK: Trachea midline. CARDIOVASCULAR: Regular rate and rhythm without murmurs, gallops, or rubs. RESPIRATORY: Clear to auscultation. Breath sounds equal bilaterally. No wheezes , rales, or rhonchi. GASTROINTESTINAL: Abdomen soft, non-tender, nondistended. No guarding. MUSCULOSKELETAL: Extremities without clubbing, cyanosis, or edema. No calf tenderness. NEUROLOGICAL: Awake and alert. Able to move extremities spontaneously. Motor and sensory grossly within normal limits. Normal speech. Medications and IVs Current Medications Medications (Trade) Dose Ordered Sig/Christopher Route Start Time Stop Time Status Last Admin (NS Flush) 2 ml UNSCH PRN IV FLUSH 03/15/17 18:15 (NS Flush) 2 ml BID IV FLUSH 03/15/17 21:00 03/16/17 21:22 (Tylenol) 650 mg Q4H PRN PO 03/15/17 18:15 03/15/17 19:38 (Zofran Inj) 4 mg Q6H PRN IVP 03/15/17 18:15 (Narcan Inj) 0.4 mg UNSCH PRN IV PUSH 03/15/17 18:15 (Faith-Colace) 1 tab BID PO 03/15/17 21:00 03/16/17 21:22 (Milk Of Magnesia Liq) 30 ml Q12H PRN PO 03/15/17 18:15 (Senokot) 17.2 mg Q12H PRN PO 03/15/17 18:15 (Dulcolax Supp) 10 mg DAILY PRN RECTAL 03/15/17 18:15 (Lactulose Liq) 30 ml DAILY PRN PO 03/15/17 18:15 (Chapstick) 1 applic UNSCH PRN TOPICAL 03/15/17 20:15 03/15/17 23:53 (Lovenox Inj) 40 mg Q24H SQ 03/15/17 22:00 03/16/17 21:22 (Timoptic 0.5% Opth Soln) 1 drop BID EACH EYE 03/15/17 22:15 03/16/17 21:21 (Protonix) 20 mg DAILY PO 03/16/17 09:00 03/16/17 08:56 (Paxil) 10 mg DAILY PO 03/16/17 09:00 03/16/17 08:55 (Pravachol) 40 mg DAILY PO 03/16/17 09:00 03/16/17 08:56 (D50w (Vial) Inj) 50 ml UNSCH PRN IV PUSH 03/16/17 08:45 (Glucagon Inj) 1 mg UNSCH PRN OTHER 03/16/17 08:45 (NovoLOG SUPPLEMENTAL SCALE) 1 ACHS SLIDING SCALE SQ 03/16/17 12:00 03/16/17 12:00 (Ecotrin Ec) 81 mg DAILY PO 03/17/17 09:00 A/P Problem List: (1) Encephalopathy ICD Code: G93.40 - Encephalopathy, unspecified Assessment and Plan Patient is a 77 y/o female with a history of breast cancer, transient global amnesia, and hyperlipidemia who presented to the ED with confusion and memory impairment: Encephalopathy - transient memory loss Possible TIA - Brain MRI: Minimal periventricular and subcortical white matter small ischemic vessel disease. No acute infarct, hemorrhage or fluid collections. - Head CT: no acute abnormality identified - Echo showing ejection fraction in the range of 55-60%. Doppler parameters are consistent with impaired left ventricular relaxation (grade 1 diastolic dysfunction). - UDS negative - consult neurology - appreciate assistance. Recommend baby aspirin daily and follow up as outpatient. - ASA 81mg daily - Lipid profile with triglyceride 103, total cholesterol 161, LDL 77, HDL 63.6 - HgA1C 6.1 - TSH WNL - Carotid ultrasound showing minimal plaque - heart healthy diet Lightheadedness with standing - Orthostatics negative - Discussed with patient good oral intake and proper hydration. Also counseled on slow transitions. Chest pain - Patient developed chest heaviness last night. No recurrence today. - Troponins negative 3. EKG showed no ischemic changes, reviewed by me. - Cardiology following, appreciate recommendations. Possible vasovagal event. Schedule for MPS today. DVT prophylaxis - Lovenox 40 mg subq q24h Discussed with patient, , Dr. Capps Discharge Planning Pending results of MPS and cardiology clearance Yseika Desai Mar 17, 2017 08:30
[2017-03-17] MEDS ORDERED: ASPIRIN EC 81 MG TABEC PO SCH (09:00)
[2017-03-17] MEDS ORDERED: REGADENOSON INJ 0.4 MG/5 ML SYR ONE (09:46)
[2017-03-17] MEDS: PARoxetine HCL 20 MG TAB PO SCH (11:29)
[2017-03-17] MEDS: PANTOPRAZOLE SOD 20 MG DELAYED RELEASE TAB PO SCH (11:29)
[2017-03-17] MEDS: TIMOLOL MALEATE 0.5% OPHT SOLN 5 ML BTL EACH EYE SCH (11:30)
[2017-03-17] MEDS: PRAVASTATIN SOD 40 MG TAB PO SCH (11:30)
[2017-03-17] MEDS: DOCUSATE SODIUM 50 MG/SENNA 8.6 MG TAB PO SCH (11:30)
[2017-03-17] MEDS: SODIUM CHLORIDE 0.9% FLUSH 10 ML FLUSH IV FLUSH SCH (11:30)
--- NOTE | 2017-03-17 12:44 | PD.CARD.PN ---
Subjective Subjective Remarks No events overnight No chest pain No further confusion Objective Medications Current Medications Medications (Trade) Dose Ordered Sig/Christopher Route Start Time Stop Time Status Last Admin (NS Flush) 2 ml UNSCH PRN IV FLUSH 03/15/17 18:15 (NS Flush) 2 ml BID IV FLUSH 03/15/17 21:00 03/17/17 11:30 (Tylenol) 650 mg Q4H PRN PO 03/15/17 18:15 03/15/17 19:38 (Zofran Inj) 4 mg Q6H PRN IVP 03/15/17 18:15 (Narcan Inj) 0.4 mg UNSCH PRN IV PUSH 03/15/17 18:15 (Faith-Colace) 1 tab BID PO 03/15/17 21:00 03/17/17 11:30 (Milk Of Magnesia Liq) 30 ml Q12H PRN PO 03/15/17 18:15 (Senokot) 17.2 mg Q12H PRN PO 03/15/17 18:15 (Dulcolax Supp) 10 mg DAILY PRN RECTAL 03/15/17 18:15 (Lactulose Liq) 30 ml DAILY PRN PO 03/15/17 18:15 (Chapstick) 1 applic UNSCH PRN TOPICAL 03/15/17 20:15 03/15/17 23:53 (Lovenox Inj) 40 mg Q24H SQ 03/15/17 22:00 03/16/17 21:22 (Timoptic 0.5% Opth Soln) 1 drop BID EACH EYE 03/15/17 22:15 03/17/17 11:30 (Protonix) 20 mg DAILY PO 03/16/17 09:00 03/17/17 11:29 (Paxil) 10 mg DAILY PO 03/16/17 09:00 03/17/17 11:29 (Pravachol) 40 mg DAILY PO 03/16/17 09:00 03/17/17 11:30 (D50w (Vial) Inj) 50 ml UNSCH PRN IV PUSH 03/16/17 08:45 (Glucagon Inj) 1 mg UNSCH PRN OTHER 03/16/17 08:45 (NovoLOG SUPPLEMENTAL SCALE) 1 ACHS SLIDING SCALE SQ 03/16/17 12:00 03/16/17 12:00 (Ecotrin Ec) 81 mg DAILY PO 03/17/17 09:00 03/17/17 11:29 Vital Signs / I&O Vital Signs Date Time Temp Pulse Resp B/P (MAP) Pulse Ox O2 Delivery O2 Flow Rate FiO2 03/17/17 12:08 98.2 62 24 156/70 (98) 98 03/17/17 08:09 98.6 60 24 141/61 (87) 98 03/17/17 05:09 62 03/17/17 04:22 97.8 65 18 133/64 (87) 96 03/16/17 23:58 73 03/16/17 23:46 98.1 75 18 154/67 (96) 95 03/16/17 21:07 97.9 71 16 158/71 (100) 95 03/16/17 16:05 73 03/16/17 16:03 98.0 75 16 153/71 (98) 97 I/O 03/16/17 03/16/17 03/16/17 03/17/17 03/17/17 03/17/17 07:00 15:00 23:00 07:00 15:00 23:00 Intake Total 600 ml 150 ml Balance 600 ml 150 ml Intake Oral 600 ml 150 ml # Voids 2 2 1 3 # Bowel Movements 1 Physical Exam GENERAL: NAD, AAOx3 SKIN: Warm and dry. HEAD: Atraumatic. Normocephalic. EYES: Pupils equal and round. No scleral icterus. No injection or drainage. ENT: No nasal bleeding or discharge. Mucous membranes pink and moist. NECK: Trachea midline. No JVD. CARDIOVASCULAR: Regular rate and rhythm. RESPIRATORY: No accessory muscle use. Clear to auscultation. Breath sounds equal bilaterally. GASTROINTESTINAL: Abdomen soft, non-tender, nondistended. Hepatic and splenic margins not palpable. MUSCULOSKELETAL: Extremities without clubbing, cyanosis, or edema. No obvious deformities. NEUROLOGICAL: Awake and alert. No obvious cranial nerve deficits. Motor grossly within normal limits. Five out of 5 muscle strength in the arms and legs. Normal speech. PSYCHIATRIC: Appropriate mood and affect; insight and judgment normal. Laboratory Laboratory Tests Test 03/16/17 13:37 Phosphorus Level 3.6 MG/DL Magnesium Level 2.1 MG/DL Total Creatine Kinase 57 U/L Troponin I 0.02 NG/ML Thyroid Stimulating Hormone 3rd Gen 3.040 uIU/ML Assessment and Plan Problem List: (1) Chest pain ICD Codes: R07.9 - Chest pain, unspecified (2) HTN (hypertension) ICD Codes: I10 - Essential (primary) hypertension (3) Encephalopathy ICD Codes: G93.40 - Encephalopathy, unspecified (4) Acute confusion ICD Codes: R41.0 - Disorientation, unspecified Status: Acute Assessment and Plan 1. Acute confusion for which the patient has had multiple events. 2. Atypical chest pain. Plan for stress test today If negative can be discharged for follow up with me in the office If positive will need cardiac catheterization 3. Accelerated hypertension on arrival with a blood pressure of 224/95 Blood pressure better controlled, will need follow up to trend 4. Ejection fraction of 55-60%, grade 1 diastolic dysfunction, mild mitral, aortic and tricuspid regurgitation by echocardiogram (March 16, 2017). 5. Outpt rhythm analysis to rule out arrhythmias, Afib, etc. Tate Kay DO Mar 17, 2017 12:44
--- NOTE | 2017-03-17 12:57 | RADRPT ---
EXAM DATE/TIME: 03/17/2017 09:40 [facility] COMPARISON: No previous studies available for comparison. INDICATIONS : Substernal chest pain with nausea. Angina. DOSE: 26.7 mCi Tc99m Myoview at stress. 8.5 mCi Tc99m Myoview at rest. 0.4 mg Lexiscan STRESS SYMPTOMS: Shortness of breath with a headache. EJECTION FRACTION: > 70% MEDICAL HISTORY : Hypertension. Carcinoma, breast. SURGICAL HISTORY : Hysterectomy. Lumpectomy. ENCOUNTER: Initial ACUITY: 1 day PAIN SCALE: 5/10 LOCATION: Substernal chest TECHNIQUE: The patient underwent pharmacologic stress with infusion of prescribed dose. Continuous ECG tracing was monitored during stress. Gated SPECT imaging was performed after stress and conventional SPECT i maging was performed at rest. The examination was performed on a SPECT/CT scanner, both attenuation and non-corrected datasets were reviewed. FINDINGS: DISTRIBUTION: The maximum perfused segment at stress is in the anterior wall. PERFUSION STUDY: The pattern of perfusion at stress is within normal limits. GATED STUDY: There is intact wall motion and thickening without hypokinetic or dyskinetic segments. CONCLUSION: Normal myocardial perfusion scan without evidence of stress-induced or fixed perfusion abnormalities. Normal wall motion and ejection fraction. RISK CATEGORY: Low (<1% Annual Mortality Rate) Obi Kathleen MD on March 17, 2017 at 12:53 Board Certified Radiologist. This report was verified electronically.
[2017-03-17] MEDS ORDERED: ECASA81 PO (13:09)
--- NOTE | 2017-03-17 13:18 | HHI.DCPOC ---
Discharge Care Plan Diagnosis: (1) Transient global amnesia (2) Acute confusion (3) Chest pain (4) HTN (hypertension) (5) Diastolic dysfunction (6) Encephalopathy Goals to Promote Your Health * To prevent worsening of your condition and complications * To maintain your health at the optimal level Directions to Meet Your Goals Take your medications as prescribed Follow your dietary instruction Follow activity as directed Keep your appointments as scheduled Take your immunizations and boosters as scheduled If your symptoms worsen call your PCP, if no PCP go to Urgent Care Center or Emergency Room Smoking is Dangerous to Your Health. Avoid second hand smoke Call the 24-hour hour crisis hotline for domestic abuse at Yesika Desai Mar 17, 2017 13:18
== END 2017-03-17 15:28 | disposition home or self-care (01) ==
LOC: NEPC 15:28 → NEDA 18:11 → NEPGCP 20:04
PROVIDERS: ADMIT Hospitalist; ATTEND Hospitalist
DX: G93.40 Encephalopathy, unspecified (principal); G45.4 Transient global amnesia; R11.0 Nausea; R10.13 Epigastric pain; R07.89 Other chest pain; R94.31 Abnormal electrocardiogram [ECG] [EKG]; I11.9 Hypertensive heart disease without heart failure; I07.1 Rheumatic tricuspid insufficiency; E78.5 Hyperlipidemia, unspecified; R73.03 Prediabetes; E04.1 Nontoxic single thyroid nodule; H40.9 Unspecified glaucoma; R09.89 Other specified symptoms and signs involving the circulatory and respiratory systems; Z79.899 Other long term (current) drug therapy; Z85.3 Personal history of malignant neoplasm of breast; Z23 Encounter for immunization
CPT/HCPCS: 70450; 70551; 71010; 78452; 80053; 80061; 80307; 81001; 82550; 82948; 83036; 83735; 84100; 84443; 84484; 85025; 85610; 85730; 93005; 93017; 93306; 93880; 96372; 96374; 96376; 97161; 97166; 99285; A9502; G0008; G0378; G8987; G8988; G8989; J0360; J1650; J1815; J2785; Q2038; 90471; 90686